=== PATIENT | female | born 1960 | race Caucasian/White ===

== ENCOUNTER 2020-08-28 11:16 | Outpatient (REF) | payer OTHER, SELFPAY ==
[2020-08-28 14:39] LABS: Cholesterol 236 mg/dL; HDL Cholesterol 57 mg/dL; LDL Cholesterol Calculated 156 mg/dl; Triglycerides 115 mg/dL
[2020-08-28 15:01] LABS: Thyroid Stimulating Hormone 2.01 mIU/mL (0.32-4.0)
== END 2020-08-28 11:17 | disposition home or self-care (01) ==
LOC: HO.10HDL 11:16
PROVIDERS: Visit Provider Internal Medicine
DX: E78.00 Pure hypercholesterolemia, unspecified (principal); E03.9 Hypothyroidism, unspecified
CPT/HCPCS: 80061; 84443

== ENCOUNTER → 2020-10-23 08:33 | Outpatient (BNV) | payer OTHER, SELFPAY | PROVIDERS: Visit Provider Internal Medicine Medical Oncology | DX: C50.919 Malignant neoplasm of unspecified site of unspecified female breast (principal); M85.80 Other specified disorders of bone density and structure, unspecified site | CPT/HCPCS: 99212; 99213; 99214 ==

== ENCOUNTER 2020-10-25 14:22 | Outpatient (REF) | payer OTHER, SELFPAY ==
--- NOTE | 2020-10-25 14:26 | MM_ITS ---
EXAMINATION: MM SCREENING DIGITAL BREAST TOMOSYNTHESIS, BILATERAL CLINICAL INFORMATION: Screening. Asymptomatic. Prior left lumpectomy and radiation for invasive lobular cancer 2016. Due for yearly exam. COMPARISON: Mammography: 08/28/2019, 08/23/2018, 08/03/2017 TECHNIQUE: Digital breast tomosynthesis is performed in both the craniocaudal and mediolateral oblique views along with computer-aided detection (CAD). Synthesized 2D images are generated from the tomosynthesis. FINDINGS: The breasts are heterogeneously dense, which may obscure small masses (ACR BI-RADS breast composition Category c). Post therapy changes left breast are again noted with scarring 12:00 position. The breasts show no interval mass or architectural abnormality. There are no abnormal calcifications. The axilla are unremarkable. No significant changes. MM/MM tomosynthesis screening BI IMPRESSION: No significant changes from prior exams. ASSESSMENT: BI-RADS 2: Benign RECOMMENDATION: Routine annual mammography screening. This patient's information was entered into a reminder system with a target due date for their next mammogram.
== END 2020-10-25 14:23 | disposition home or self-care (01) ==
LOC: HO.MAMMO 14:22
PROVIDERS: PCP Internal Medicine; Visit Provider Surgery
DX: Z12.31 Encounter for screening mammogram for malignant neoplasm of breast (principal)
CPT/HCPCS: 77063; 77067

== ENCOUNTER → 2020-11-04 10:40 | Outpatient (BNVA) | payer OTHER, SELFPAY | PROVIDERS: PCP Internal Medicine; Visit Provider Surgery | DX: C50.912 Malignant neoplasm of unspecified site of left female breast (principal); Z17.0 Estrogen receptor positive status [ER+] | CPT/HCPCS: 99212 ==

== ENCOUNTER → 2021-05-05 08:58 | Outpatient (BNVA) | payer OTHER, SELFPAY | PROVIDERS: PCP Internal Medicine; Visit Provider Surgery | DX: C50.912 Malignant neoplasm of unspecified site of left female breast (principal); Z17.0 Estrogen receptor positive status [ER+] | CPT/HCPCS: 99212 ==

== ENCOUNTER 2021-10-26 16:04 | Outpatient (REF) | payer OTHER, SELFPAY ==
--- NOTE | ~2021-10-26 | MM_ITS ---
EXAMINATION: MM SCREENING DIGITAL BREAST TOMOSYNTHESIS, BILATERAL CLINICAL INFORMATION: Screening. Asymptomatic. Invasive lobular cancer left breast status post lumpectomy and radiation, 2016. COMPARISON: Mammography: 10/25/2020, 08/28/2019, 08/23/2018 TECHNIQUE: Digital breast tomosynthesis is performed in both the craniocaudal and mediolateral oblique views along with computer-aided detection (CAD). Synthesized 2D images are generated from the tomosynthesis. FINDINGS: The breasts are heterogeneously dense, which may obscure small masses (ACR BI-RADS breast composition Category c). Parenchymal pattern is similar to prior studies. Again, there are post therapy changes on the left with scarring 12:00 position. There is bilateral fibronodular parenchymal pattern is similar to prior studies. No developing density or interval mass or interval architectural changes. No abnormal calcifications. The axilla are unremarkable. Skin contours are smooth. MM/MM tomosynthesis screening BI IMPRESSION: 1. No mammographic evidence of malignancy. 2. Post therapy changes left breast, stable. ASSESSMENT: BI-RADS 2: Benign RECOMMENDATION: Routine annual mammography screening. This patient's information was entered into a reminder system with a target due date for their next mammogram.
== END 2021-10-26 16:05 | disposition home or self-care (01) ==
LOC: HO.MAMMO 16:04
PROVIDERS: Absent Provider Surgery; PCP Internal Medicine; Visit Provider Internal Medicine
DX: Z12.31 Encounter for screening mammogram for malignant neoplasm of breast (principal)
CPT/HCPCS: 77063; 77067

== ENCOUNTER 2021-11-26 09:24 | Outpatient (REF) | payer OTHER, SELFPAY ==
--- NOTE | ~2021-11-26 | MM_ITS ---
EXAMINATION: BONE DENSITOMETRY CLINICAL INDICATION: Breast cancer. On letrozole. History of osteopenia. COMPARISON: Previous BD dated 11/08/2019 and baseline BD dated 10/29/2016. TECHNIQUE: Using a [employer] DXA System (software version: 13.1) manufactured by [employer], dual-energy x-ray absorptiometry was performed of the lumbar spine and left hip. The images are of good technical quality. Summary results are attached. FINDINGS: AP SPINE L1-L4: Current: BMD 1.054 g/cm2, Z-score 0.0, T-score -1.1, osteopenia, 4.1% decrease from previous, 5.0% decrease from baseline (<5% change is not significant). Prior: BMD 1.099 g/cm2. Baseline: BMD 1.110 g/cm2. LEFT FEMUR, NECK: Current: BMD 0.843 g/cm2, Z-score -0.3, T-score -1.4, osteopenia. Prior: BMD 0.849 g/cm2. Baseline: BMD 0.896 g/cm2. LEFT FEMUR, TOTAL: Current: BMD 0.870 g/cm2, Z-score -0.3, T-score -1.1, osteopenia, 2.5% decrease from previous, 3.3% decrease from baseline (<5% change is not significant). Prior: BMD 0.892 g/cm2. Baseline: BMD 0.900 g/cm2. IDENTIFIED RISK FACTORS: Menopause. HISTORY OF FRACTURE: None listed. MEDICATIONS: Calcium. Vitamin D. MM/XR DEXA axial skeleton IMPRESSION: 1. DIAGNOSIS: Osteopenia based on the lowest T-score value of -1.4 in the femoral neck applying World Health Organization criteria. 2. 10-YEAR FRACTURE RISK PREDICTION, FRAX: Major osteoporotic fracture (clinical spine, forearm, hip or shoulder) 8.0%. Hip fracture 0.7%. 3. Treatment Recommendations: NOF guidelines recommend consideration for treatment in postmenopausal women and men age 50 and older presenting with the following: -A hip or vertebral (clinical or morphometric) fracture. -T-score less than or equal to -2.5 at the femoral neck or spine after appropriate evaluation to exclude secondary causes. -Low bone mass at the hip or spine and a 10-year fracture probability by FRAX of greater than or equal to 3% for hip fracture or greater than or equal to 20% for major osteoporotic fracture based on the [place] adapted WHO algorithm. 4. Other Recommendations: All treatment decisions require clinical judgment and consideration of individual patient factors, including patient preferences, comorbidities, previous drug use, risk factors not captured in the FRAX model (e.g. frailty, falls, vitamin D deficiency, increased bone turnover, interval significant decline in bone density) and possible under or overestimation of fracture risk by FRAX. Additional medical evaluation for secondary cause of low bone mineral density may be appropriate. FUTURE SCAN RECOMMENDATION: People with diagnosed cases of osteoporosis or at high risk for fracture should have regular bone mineral density tests. For patients eligible for Medicare, routine testing is allowed once every 2 years. The testing frequency can be increased to one year for patients who have rapidly progressing disease, those who are receiving or discontinuing medical therapy to restore bone mass, or have additional risk factors.
== END 2021-11-26 09:25 | disposition home or self-care (01) ==
LOC: HO.MAMMO 09:24
PROVIDERS: PCP Internal Medicine; Visit Provider Internal Medicine Medical Oncology
DX: Z13.820 Encounter for screening for osteoporosis (principal); M85.80 Other specified disorders of bone density and structure, unspecified site; Z78.0 Asymptomatic menopausal state; Z79.811 Long term (current) use of aromatase inhibitors; Z79.899 Other long term (current) drug therapy
CPT/HCPCS: 77080

== ENCOUNTER → 2022-01-14 14:36 | Outpatient (BNVA) | payer OTHER, SELFPAY | PROVIDERS: PCP Internal Medicine; Referring Provider Internal Medicine; Visit Provider Surgery | DX: C50.912 Malignant neoplasm of unspecified site of left female breast (principal); Z17.0 Estrogen receptor positive status [ER+] | CPT/HCPCS: 99212 ==

== ENCOUNTER 2022-01-20 06:32 | Day surgery (SDC) | payer OTHER, SELFPAY ==
[2022-01-14 11:28] VITALS: BMI 30.3
--- NOTE | 2022-01-19 09:26 | HO.ANESPROP2 ---
Documented by User: Ryann Calvert NP 01/19/22 09:27 HPI - Anesthesia Eval Consult details Narrative: 61yo F for Colonoscopy PMFSH Active Problems Active Problems: All Active Problems (Updated 01/14/22 @ 15:09 by Scooby Sandhu MD) Breast cancer (Acute) Lobular carcinoma of left breast, stage 1, estrogen receptor positive (Acute) Past Medical History Medical History Anxiety Cataract of both eyes Hypothyroidism Lobular carcinoma of left breast, stage 1, estrogen receptor positive Family History Family History Mother History of colon cancer Surgical History Surgical History History of lumpectomy of left breast Hx of cataract surgery Hx of colonoscopy Hx of wisdom tooth extraction Social History Social History Are you a primary aged or disabled care worker to a significant other at home: No Do you presently have visiting nurse or other home services: No Patient Tobacco Use Status: Never used Tobacco Use of substances other than those prescribed or required for medical reasons: No Are you DNR?: No Advance Directives: No Advance Directives Information Provided: No Advance Directives on File: No Recently lost weight without trying: No Eating poorly because of decreased appetite: No Nutrition Risks: No Nutritional Risk Meds Allergies Allergy/AdvReac Type Severity Reaction Status Date / Time adhesive tape [ADHESIVE TAPE] Allergy Intermediate RASH, Verified 01/14/22 14:49 SWELLING, TOPICAL Penicillins [PENICILLINS] AdvReac Mild sensitivity Verified 01/14/22 14:49 had diarrhea with weight loss following rx in Home Medications Medication Instructions Recorded Confirmed Last Taken Type calcium-magnesium 750 mg-465 mg See Rx Instructions .ROUTE .COMPLEX 10/23/20 01/14/22 Unknown History tablet levothyroxine 112 mcg tablet 1 tab PO DAILY 10/23/20 01/14/22 Unknown History multivitamin 1 tab PO DAILY 10/23/20 01/14/22 Unknown History omega-3 fatty acids See Rx Instructions .ROUTE .COMPLEX 10/23/20 01/14/22 Unknown History Exam Exam Date and Time: January 19, 2022 0926 Height,Weight and Vital Signs: Height 5 ft 2 in Weight 75.296 kg Pertinent Lab Results Pertinent Lab Results: Laboratory Tests 10/26/21 10/26/21 10:05 10:05 WBC 4.6 L Hgb 13.8 Hct 40.2 Plt Count 257 Sodium 141 Potassium 4.1 Chloride 106 Carbon Dioxide 28 BUN 12 Creatinine 0.74 Assessment and Plan Assessment Anesthesia Assessment: Chart Reviewed Documented by User: Michelle Nathan MD 01/20/22 07:21 [facility] Past Medical History Medical History Anxiety Cataract of both eyes Hypothyroidism Lobular carcinoma of left breast, stage 1, estrogen receptor positive Family History Family History Mother History of colon cancer Family history of problems with anesthesia: No Surgical History Surgical History History of lumpectomy of left breast Hx of cataract surgery Hx of colonoscopy Hx of wisdom tooth extraction History of Problems with Anesthesia: No Social History Social History Are you a primary aged or disabled care worker to a significant other at home: No Do you presently have visiting nurse or other home services: No Patient Tobacco Use Status: Never used Tobacco Use of substances other than those prescribed or required for medical reasons: No Are you DNR?: No Advance Directives: No Advance Directives Information Provided: No Advance Directives on File: No Recently lost weight without trying: No Eating poorly because of decreased appetite: No Nutrition Risks: No Nutritional Risk Meds Allergies Allergy/AdvReac Type Severity Reaction Status Date / Time adhesive tape [ADHESIVE TAPE] Allergy Intermediate RASH, Verified 01/14/22 14:49 SWELLING, TOPICAL Penicillins [PENICILLINS] AdvReac Mild sensitivity Verified 01/14/22 14:49 had diarrhea with weight loss following rx in Home Medications Medication Instructions Recorded Confirmed Last Taken Type calcium-magnesium 750 mg-465 mg See Rx Instructions .ROUTE .COMPLEX 10/23/20 01/14/22 Unknown History tablet levothyroxine 112 mcg tablet 1 tab PO DAILY 10/23/20 01/14/22 Unknown History multivitamin 1 tab PO DAILY 10/23/20 01/14/22 Unknown History omega-3 fatty acids See Rx Instructions .ROUTE .COMPLEX 10/23/20 01/14/22 Unknown History Exam Airway Mallampati Class: II TM Dist: >3cm Neck ROM: Full Assessment and Plan Assessment Anesthesia Assessment: Anesthesia Plan Discussed Final Anesthetic Review Family History of Problems with Anesthesia: No History of Problems with Anesthesia: No NPO: Yes ASA Class: II Final Preanesthetic Review: No Changes in Pt Med Stat, Meds/Allgs Chart Reviewed, Consent Obtained/Reviewed and Anes Risks/Benef Reviewed Patient Risk: Low Procedure Risk: Low Anesthetic Plan Anesthetic Plan: GA Disposition: Standard PACU
[2022-01-20 06:54] VITALS: BP 130/82; PULSE 95; RESP 14; TEMP 36.5; O2SAT 97
[2022-01-20] MEDS: Lactated Ringers 1,000 ML 100 ML IVCONT (07:12)
[2022-01-20 08:20] VITALS: BP 85/45; PULSE 75; RESP 16; TEMP 36.3; O2SAT 98
--- NOTE | 2022-01-20 08:22 | P.BOP_ITS ---
Brief Operative Note Date of Service: 01/20/22 Pre-op diagnosis: Screening Post-op diagnosis: other (Diverticulosis) Procedure: Colnoscopy to the cecum and TI Surgeon: Colin Phan Anesthesia: MAC Was an [employer] Sales Beauty Advisor used for this Procedure?: No Estimated blood loss (mL): 0 Pathology: none sent Condition: stable Disposition: PACU
[2022-01-20 08:25] VITALS: BP 99/53; PULSE 77; RESP 16; O2SAT 96
[2022-01-20 08:30] VITALS: BP 103/61; PULSE 83; RESP 16; O2SAT 98
[2022-01-20 08:35] VITALS: BP 116/58; PULSE 70; RESP 16; TEMP 36.6; O2SAT 98
--- NOTE | 2022-01-20 09:03 | OP_ITS ---
SURGEON: Colin Phan MD INDICATIONS: The patient presents for evaluation of personal history of tubular adenoma of the colon, family history of colon cancer, colorectal cancer screening. Full consent has been obtained from her for this, including risks of bleeding and perforation. PREOPERATIVE DIAGNOSIS: POSTOPERATIVE DIAGNOSIS: PROCEDURE PERFORMED: Colonoscopy to cecum and terminal ileum. ESTIMATED BLOOD LOSS: COMPLICATIONS: ANESTHESIA: Medication used, monitored anesthesia care. ASSISTANTS: SPECIMENS: PREOPERATIVE DIAGNOSES: Colorectal cancer screening, personal history of tubular adenoma of the colon, family history of colon cancer. POSTOPERATIVE DIAGNOSES: Colorectal cancer screening, personal history of tubular adenoma of the colon, family history of colon cancer, sigmoid diverticulosis, and internal hemorrhoids. DESCRIPTION OF PROCEDURE: The patient was placed in the left lateral decubitus position the digital rectal exam revealed no abnormalities. The Olympus video pediatric colonoscope was entered into the rectum and advanced easily to the cecum. Once in the cecum, I did identify a normal-appearing cecal pouch with appendiceal orifice and a normal-appearing ileocecal valve. The terminal ileum was cannulated and appeared normal. The scope was withdrawn back in the colon. The entire cecum and ileocecal valve appeared normal. The scope was slowly withdrawn assessing all mucosal surfaces carefully. Preparation was excellent. I did not visualize any sign of polyps, colitis, nor angiodysplasia. There was a mild amount of sigmoid diverticulosis. In the rectum, the scope was retroflexed visualizing internal hemorrhoids, but no other pathology. The rectal mucosa appeared normal. The scope was straightened and withdrawn from the patient. She tolerated the procedure well and was returned to the recovery area in stable condition. IMPRESSION: 1. Sigmoid diverticulosis. 2. Internal hemorrhoids. PLAN: Given her previous history and family history, I would recommend a followup colonoscopy in 5 years for further screening. She will otherwise see me on a p.r.n. basis. MD LOIS Mclean/ANNA / [phone]
== END 2022-01-20 09:05 | disposition home or self-care (01) ==
PROVIDERS: PCP Internal Medicine; Visit Provider Internal Medicine
PROC: 0DJD8ZZ Inspection of Lower Intestinal Tract, Via Natural or Artificial Opening Endoscopic (ICD-10-PCS; CPT 45378; principal; 2022-01-20 07:30)
DX: Z12.11 Encounter for screening for malignant neoplasm of colon (principal); Z86.010 Personal history of colon polyps; Z80.0 Family history of malignant neoplasm of digestive organs; K57.30 Diverticulosis of large intestine without perforation or abscess without bleeding; K64.8 Other hemorrhoids; E03.9 Hypothyroidism, unspecified; E78.00 Pure hypercholesterolemia, unspecified; C50.912 Malignant neoplasm of unspecified site of left female breast; Z17.0 Estrogen receptor positive status [ER+]; Z79.811 Long term (current) use of aromatase inhibitors; Z92.3 Personal history of irradiation; Z79.899 Other long term (current) drug therapy; Z98.890 Other specified postprocedural states
CPT/HCPCS: 45378

== ENCOUNTER → 2022-02-23 13:14 | Outpatient (BNVA) | payer OTHER, SELFPAY | PROVIDERS: PCP Internal Medicine; Visit Provider Orthopaedic Surgery | DX: R25.2 Cramp and spasm (principal) | CPT/HCPCS: 99202 ==

== ENCOUNTER 2022-10-28 15:54 | Outpatient (REF) | payer OTHER, SELFPAY ==
--- NOTE | ~2022-10-28 | MM_ITS ---
EXAMINATION: MM SCREENING DIGITAL BREAST TOMOSYNTHESIS, BILATERAL CLINICAL INFORMATION: Screening. Asymptomatic. Left breast ILC status post lumpectomy and radiation, 2016 COMPARISON: Mammography: 10/26/2021, 10/25/2020, 08/28/2019, 08/23/2018 TECHNIQUE: Digital breast tomosynthesis is performed in both the craniocaudal and mediolateral oblique views along with computer-aided detection (CAD). Synthesized 2D images are generated from the tomosynthesis. FINDINGS: The breasts are heterogeneously dense, which may obscure small masses (ACR BI-RADS breast composition Category c). Parenchymal pattern is similar to prior studies and there is no interval mass or architectural abnormality or developing density. Left breast post therapy changes are again seen with mild reduced breast size and stable scarring. There are no abnormal calcifications. The axilla and skin contours are unremarkable. No significant changes from prior studies. MM/MM tomosynthesis screening BI IMPRESSION: -No mammographic evidence of malignancy. -Post therapy changes left breast. ASSESSMENT: BI-RADS 2: Benign RECOMMENDATION: Routine annual mammography screening. This patient's information was entered into a reminder system with a target due date for their next mammogram.
== END 2022-10-28 15:55 | disposition home or self-care (01) ==
LOC: HO.MAMMO 15:54
PROVIDERS: PCP Internal Medicine; Visit Provider Internal Medicine
DX: Z12.31 Encounter for screening mammogram for malignant neoplasm of breast (principal)
CPT/HCPCS: 77063; 77067

== ENCOUNTER 2023-04-07 07:21 | Outpatient (REF) | payer OTHER, SELFPAY ==
[2023-04-07 07:39] LABS: MANUAL DIFF FLAG NO
[2023-04-07 08:03] LABS: Eosinophils Absolute Auto 0.1 X10*3/uL (0.0-0.4); Eosinophils Percent Auto 3.2 % (0-4); Hemoglobin 14.4 g/dl (12.0-16.0); Imm Gran Abs Auto 0.01 X10*3/uL (0.00-0.03); Imm Gran Pct Auto 0.2 % (0.0-0.4); Lymphocytes Absolute Auto 1.6 X10*3/uL (1.2-4.9); Lymphocytes Percent Auto 39.2 % (20-40); Mean Corpuscular HGB Conc 33.5 g/dl (31.0-35.0); Mean Corpuscular Hemoglobin 29.4 pg (27.0-33.0); Mean Corpuscular Volume 87.8 fL (80.0-98.0); Mean Platelet Volume 9.2 fL (9.4-12.3); Monocytes Absolute Auto 0.4 X10*3/uL (0.1-1.2); Monocytes Percent Auto 8.8 % (2-11); Neutrophils Percent Auto 47.6 % (45-73); Platelet Count 253 X10*3/uL (160-400); White Blood Count 4.1 X10*3/uL (4.8-10.8)
[2023-04-07 08:50] LABS: Alanine Aminotransferase 22 U/L (0-31); Albumin Level 4.1 g/dL (3.5-5.0); Alkaline Phosphatase 100 U/L (39-117); Anion Gap 10 (12-20); Aspartate Amino Transferase 22 U/L (5-31); Bilirubin Total 0.6 mg/dL (0.0-1.0); Blood Urea Nitrogen 13 mg/dL (9-16); Calcium 9.3 mg/dL (8.4-10.2); Carbon Dioxide 30 mmol/L (22-29); Chloride 105 mmol/L (96-108); Cholesterol 231 mg/dL; Estimated Glomerular Filt Rate > 60; Glucose Fasting 92 mg/dL (60-99); HDL Cholesterol 61 mg/dL; LDL Cholesterol Calculated 154 mg/dl; Potassium 4.1 mmol/L (3.3-5.1); Sodium 141 mmol/L (135-145); Total Protein 7.5 g/dL (6.5-8.0); Triglycerides 84 mg/dL
[2023-04-07 08:57] LABS: Thyroid Stimulating Hormone 0.69 uIU/mL (0.32-4.0); Vitamin D 25-OH Total 44.8 ng/mL (>30)
== END 2023-04-07 07:22 | disposition home or self-care (01) ==
LOC: HO.LAB 07:21
PROVIDERS: PCP Internal Medicine; Visit Provider Internal Medicine
DX: Z00.00 Encounter for general adult medical examination without abnormal findings (principal); E03.9 Hypothyroidism, unspecified; E78.00 Pure hypercholesterolemia, unspecified; M54.50 Low back pain, unspecified; C50.112 Malignant neoplasm of central portion of left female breast
CPT/HCPCS: 36415; 80053; 80061; 82306; 84443; 85025

== ENCOUNTER → 2023-04-29 11:17 | Outpatient (BNVA) | payer OTHER, SELFPAY | PROVIDERS: PCP Internal Medicine; Visit Provider Internal Medicine Cardiovascular Disease | DX: R00.2 Palpitations (principal); E78.5 Hyperlipidemia, unspecified | CPT/HCPCS: 99202 ==

== ENCOUNTER 2023-06-07 09:57 | Outpatient (AMB) | payer OTHER, SELFPAY ==
[2023-06-07 10:01] VITALS: BMI 28.9
--- NOTE | 2023-06-07 10:01 | MHC.OFFVIS ---
Intake Vital Signs 06/07/23 10:01 Height 5 ft 3 in Weight 163 lb BMI 28.9 Intake Visit Reasons: NewProb-Left Thumb Pain Intake Note: Jordana 63 yr old female presents today for new problem visit for her left thumb pain from DOI 05/27/23. States pain started after she mown her lawn. States she banged her thumb on the handle and felt immediate pain. States she is currently limited ROM and has some swelling. Reports pain increases with thumb movement. States she had it wrapped all week with an gabriel Wrap. Denies numbness or tingling. Allergies adhesive tape [ADHESIVE TAPE] Allergy (Intermediate, Verified 06/07/23 10:04) RASH, SWELLING, TOPICAL Penicillins [PENICILLINS] Adverse Reaction (Mild, Verified 06/07/23 10:04) sensitivity had diarrhea with weight loss following rx in HPI NewProb-Left Thumb Pain HPI Details 63-year-old female who presents to the office today for evaluation of left thumb pain s/p banging her thumb on the handle while mowing her lawn, 05/27/23. She states she has pain, swelling and limited ROM in her thumb which is aggravated with movement. She denies any numbness or tingling and has not had any treatment in the past. She had wrapped her thumb with an GABRIEL bandage for a week. COUNTS INCLUDE 234 BEDS AT THE [facility] Medical History Anxiety Cataract of both eyes Hypothyroidism Lobular carcinoma of left breast, stage 1, estrogen receptor positive Surgical History History of lumpectomy of left breast Hx of cataract surgery Hx of colonoscopy Hx of wisdom tooth extraction Family History Mother History of colon cancer Social History (Updated 06/07/23 @ 10:09 by NEYMAR Chung) Household Members: None Housing: House Are you a primary date night caregiver to a significant other at home: No Do you presently have visiting nurse or other home services: No Patient Tobacco Use Status: Never used Tobacco service: No Current occupational status: employed 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 No Pain with CMC grind, they are able to make a full fist and fully extend. Negative finklesteins. NVI. Results Reviewed Results Reviewed: Xrays were obtained in the office today and personally reviewed by me of the left hand show cmc oa Assessment & Plan Assessment & Plan (1) Arthritis of carpometacarpal (CMC) joint of left thumb: Code(s): M18.12 - Unilateral primary osteoarthritis of first carpometacarpal joint, left hand Plan We discussed options which include formal occupational therapy vs home exercises. I did review with her some exercises to do at home. She was also given an off the shelf comfort cool brace to help with immobilization which she will wear with night time and with any type of strenuous activities. I did encourage her to work on her exercises throughout the day when not wearing the brace. I would expect improvement of symptoms in the next 2-3 weeks. If symptoms persist or worsens, patient will contact the office, otherwise follow-up as needed. Orders: Orders XR hand LT min 3V Today M79.642 - Pain in left hand Patient Instructions: Scribed for Adamaris Peguero PA-C, by Reed Rush certified medical technician, on 06/07/2023 at 10:00 AM OPAL. Adamaris Hyman PA-C, have personally reviewed and agree with the information entered by the scribe. Coding Level of Care Code New Pt Level 3 (01603) Diagnoses Arthritis of carpometacarpal (CMC) joint of left thumb M18.12
== END 2023-06-07 10:33 | disposition home or self-care (01) ==
PROVIDERS: PCP Internal Medicine; Visit Provider Physician Assistant
DX: M18.12 Unilateral primary osteoarthritis of first carpometacarpal joint, left hand (principal)
CPT/HCPCS: 99213

== ENCOUNTER → 2023-06-07 09:57 | Outpatient (BNVA) | payer OTHER, SELFPAY | PROVIDERS: PCP Internal Medicine; Visit Provider Physician Assistant | DX: M18.12 Unilateral primary osteoarthritis of first carpometacarpal joint, left hand (principal) | CPT/HCPCS: 73130; 99212 ==

== ENCOUNTER 2023-06-07 15:57 | Outpatient (REF) | payer OTHER, SELFPAY ==
--- NOTE | ~2023-06-07 | XR_ITS ---
EXAMINATION: XR HAND, LEFT CLINICAL INFORMATION: Pain COMPARISON: None available. TECHNIQUE: PA, lateral, and oblique views of the left hand. FINDINGS: There is arthritis at the first CUSTODIAL joint and IP joint with joint space narrowing and osteophyte formation. There is a periarticular ossification adjacent to the trapezoid and base of the second metacarpal bone and more faint soft tissue calcification or ossification adjacent to the IP joint of the thumb and it is difficult to exclude old trauma. No acute fracture or dislocation. Mild osteoarthritis with small osteophytes at the MCP joint of the thumb and DIP joints of the second through fifth fingers. XR/XR hand LT min 3V IMPRESSION: Osteoarthritis greatest at the IP joint and CUSTODIAL joint of the thumb. Periarticular soft tissue ossification and calcifications as described and it is difficult to exclude old trauma. No acute fracture.
== END 2023-06-07 15:58 | disposition home or self-care (01) ==
LOC: HO.HOSX 15:57
PROVIDERS: Visit Provider Physician Assistant
DX: M18.12 Unilateral primary osteoarthritis of first carpometacarpal joint, left hand (principal)
CPT/HCPCS: 73130

== ENCOUNTER → 2023-06-20 08:53 | Outpatient (REF) | payer OTHER, SELFPAY ==
--- NOTE | 2023-06-20 08:56 | CA_ITS ---
Acquisition Time: 2023-06-20 09:02:12 Total Exercise Time: 00:06:22 Test Indications: Palpitations Medications: LEVOTHYROXINE Protocol: FRANKLYN Max HR: 151 BPM 96% of Pred: 156 BPM Max BP: 177/068 mmHG Max Work Load: 7.4 METS Exercise stress test exercise 6 min 22 sec of Franklyn protocol achieivng 96% MPHR, without anginal symptoms, without arrhytmias, with normotensive response to exercise, without EKG changes. Test reviewed with Dr. Mcnulty. Referred By: Adama Horton Overread By: Patricia Lowery
--- NOTE | 2023-06-20 08:56 | HM_ITS ---
* Total monitoring time 7 days. * Underlying rhythm is sinus. Average ventricular rate 81/Min. Range 58 to 136/Min. * Very rare supraventricular and ventricular ectopy with minimal burden. * No significant pauses or AV blocks. * Several patient markers as well as symptoms of fluttering in diary. These mostly correlate with sinus rhythm. MTDD
== END ==
LOC: HO.CARD 08:53
PROVIDERS: PCP Internal Medicine; Visit Provider Internal Medicine Cardiovascular Disease
DX: R00.2 Palpitations (principal); E78.5 Hyperlipidemia, unspecified; Z82.49 Family history of ischemic heart disease and other diseases of the circulatory system
CPT/HCPCS: 93017; 93242

== ENCOUNTER → 2023-06-20 08:56 | Outpatient (BNV) | payer OTHER, SELFPAY | PROVIDERS: PCP Internal Medicine; Visit Provider Nurse Practitioner | DX: I47.1 Supraventricular tachycardia (principal) | CPT/HCPCS: 93016; 93018; 93244 ==

== ENCOUNTER 2023-07-12 09:08 | Outpatient (AMB) | payer OTHER, SELFPAY ==
[2023-07-12 09:23] VITALS: BP 120/72; PULSE 84; BMI 29.0
--- NOTE | 2023-07-12 09:23 | A.OFFVIS_ITS ---
Intake Vital Signs 07/12/23 09:23 Height 5 ft 3 in Weight 163 lb 9.328 oz BMI 29.0 BP 120/72 Blood Pressure Location Lt brachial Position Sitting Pulse 84 Pulse Source Pulse Oximeter Intake Visit Reasons: 4 week follow up per NS Intake Note: 4 wk f/u Rehab Nurse Required: No Allergies adhesive tape [ADHESIVE TAPE] Allergy (Intermediate, Verified 07/12/23 09:28) RASH, SWELLING, TOPICAL Penicillins [PENICILLINS] Adverse Reaction (Mild, Verified 07/12/23 09:28) sensitivity had diarrhea with weight loss following rx in Medication List - Last Reconciled 07/12/23 by Candida Pavon NP-Stu calcium-magnesium 750-465 mg unsure of type. Takes one daily levothyroxine 112 mcg PO DAILY multivitamin 1 tab PO DAILY omega-3 fatty acids takes one daily/unsure brand HPI 4 week follow up per NS HPI Details Jordana is a 63-year-old female past medical history of hyperlipidemia who recently reported heart palpitations and underwent an exercise nuclear stress test and Holter monitor. Echocardiogram was ordered however not completed as of yet. Today she reports that she continues to feel heart palpitations but less than previously reported. She says it feels like a brief flutter in her chest that can last seconds. Had no sustained rapid or irregular rates. No presyncope, syncope, falls. No chest discomfort at rest or with activity. No shortness of breath, PND, orthopnea or edema. She reports good activity tolerance. She mostly notices her her palpitations when she is at rest. [facility], [facility] Medical History Anxiety Lobular carcinoma of left breast, stage 1, estrogen receptor positive Cataract of both eyes Hypothyroidism Surgical History Hx of wisdom tooth extraction Hx of colonoscopy History of lumpectomy of left breast Hx of cataract surgery Family History Mother History of colon cancer Social History Household Members: None Housing: House Are you a primary home health aide caregiver to a significant other at home: No Do you presently have visiting nurse or other home services: No Patient Tobacco Use Status: Never used Tobacco service: No Current occupational status: employed 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 Review of Systems Const All systems reviewed & are unremarkable except as noted in HPI and below ENT Denies dizziness Card Details: heart palpitations Denies chest pain, Denies chest pain at rest, Denies chest pain with activity, Denies rapid heart rate, Denies pedal edema, Denies edema, Denies leg edema, Denies lightheadedness, Denies palpitations, Denies dyspnea, Denies dyspnea on exertion and Denies orthopnea Resp Denies cough, Denies dyspnea and Denies dyspnea on exertion GI Denies hematochezia and Denies change in stool character Musc Denies abnormal gait, Denies limited range of motion, Denies muscle cramps, Denies muscle weakness, Denies numbness, Denies radiating pain into limb, Denies stiffness and Denies tingling Neuro Denies abnormal gait, Denies dizziness, Denies numbness and Denies tingling Endo Denies palpitations Physical Exam Vital Signs: Last Vital Signs Pulse 84 07/12/23 09:23 BP 120/72 07/12/23 09:23 BMI result Body Mass Index 29.0 Const General: cooperative, healthy appearing, comfortable and no acute distress Orientation/consciousness: patient oriented x3 Neck Neck: Yes normal visual inspection Resp Effort & Inspection: normal respiratory effort Auscultation: clear to auscultation bilaterally, no crackles, no rales, no rhonchi and no wheezes Cardio Jugular venous distension: no JVD Rate: regular rate Rhythm: regular rhythm Heart sounds: S1 normal heart sound present, S2 normal heart sound present, no gallops, no murmurs and no rubs Neuro General: patient oriented x3 Extrem General: Yes normal to inspection, No no pedal edema and No calf tenderness Psych Appearance: grossly normal Mental Status: mental status grossly normal Speech and movement: Normal speech and movement present Assessment & Plan Assessment & Plan (1) Palpitations: Code(s): R00.2 - Palpitations Plan: Reports of heart palpitations that feel like a brief flutter in her chest. No sustained rapid or irregular rates. Her description sounds like it could be extrasystoles however evaluation for possible AF needed to be done. She wore Holter monitor in a 06/12/2023 for 7 days showing sinus rhythm with average heart rate 81, rare ectopy, her symptoms correlated with sinus rhythm. An echocardiogram was ordered however not completed as of yet. A nstress test was done on 06/20/2003 where she exercise 6 minutes and 22 seconds without anginal symptoms and no EKG changes of ischemia. Review test results with her. Her symptom of palpitation is likely related to rare PACs/PVCs. Offered reassurance. Echocardiogram to be done. If EF is normal then her palpitations are benign. EF is reduced then patient will need further evaluation and treatment. Discussed the reduction in caffeinated beverages, stress reduction activities, activity as tolerated. Cardiology follow-up at its needed. If echo is abnormal then further follow-up will be arranged. Orders: Orders CA echo transthoracic complete Today R00.2 - Palpitations Coding Level of Care Code Est Pt Level 3 (13106) Diagnoses Palpitations R00.2 Time Spent (min) 24
== END 2023-07-12 09:54 | disposition home or self-care (01) ==
PROVIDERS: PCP Internal Medicine; Visit Provider Nurse Practitioner Family
DX: R00.2 Palpitations (principal)
CPT/HCPCS: 99213

== ENCOUNTER → 2023-07-12 09:08 | Outpatient (BNVA) | payer OTHER, SELFPAY | PROVIDERS: PCP Internal Medicine; Visit Provider Nurse Practitioner Family | DX: R00.2 Palpitations (principal) | CPT/HCPCS: 99212 ==

== ENCOUNTER → 2023-08-11 09:52 | Outpatient (REF) | payer OTHER, SELFPAY ==
--- NOTE | 2023-08-11 09:54 | CA_ITS ---
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 The calculated ejection fraction is 67% by biplane method. - No obvious valvular pathology seen on this study. Findings Left Ventricle Normal left ventricular cavity size. There is normal left ventricular wall thickness. The left ventricular systolic function is normal. The calculated ejection fraction is 67% by biplane method. There is no evidence of regional wall motion abnormalities. Diastolic function is normal for age. Right Ventricle Normal right ventricular cavity size and systolic function. Atria Both atria are normal in size. Aortic Valve There is a normal trileaflet aortic valve. There is no aortic valve stenosis. There is no aortic valve regurgitation. Mitral Valve The mitral valve appears normal. There is no mitral valve regurgitation. There is no mitral valve stenosis. Pulmonic Valve The pulmonic valve is likely normal. Tricuspid Valve Normal tricuspid valve structure. There is trace tricuspid valve regurgitation. Tricuspid regurgitation envelope is inadequate for calculation of right ventricular systolic pressure. Great Vessels The asc aorta is normal in size. Venous The inferior vena cava is normal in size and collapses greater than 50% with inspiration. Pericardium/Pleural There is no evidence of pericardial effusion. Prior Study Comparison No significant change compared to prior study dated: 05/07/2019. Recommendations, Care & Conclusions No obvious valvular pathology seen on this study. Measurements 2D Linear Measurements IVSd: 1.00 0.6-0.9/0.6-1.0 cm LVIDd: 4.40 3.9-5.3/4.2-5.9 cm LVIDd Index: 2.50 2.4-3.2/2.2-3.1 cm/m2 LVIDs: 2.60 2.0-3.6 cm LVPWd: 0.90 0.7-1.1 cm LA Diam: 3.10 2.7-3.8/3.0-4.0 cm LAIDs Index: 1.76 1.5-2.3 cm/m2 LV Mass: 171.46 67-162/88-224 g LV Mass Index: 97.42 43-95/49-115 g/m2 LVOT Diam: 1.90 3.0+(-)1.3 cm 2D Systolic Function EF 4C: 62.00 >55% EF 2C: 75.30 >55% EF BiP: 66.60 >55% Mitral Valve MV Pk E: 0.60 MV PK A: 0.64 MV Decel Time: 215.00 E/A: 0.90 E'Lateral: 7.40 E'Medial: 5.98 E/E' Med: 10.10 E/E' Lat: 8.20 PHT: 63.00 MVA PHT: 3.49 Decel [place]: 2.81 Aortic Valve AoV Pk Erick: 1.38 AoV Mn Erick: 1.03 AoV VTI: 0.31 AoV Pk Grad: 8.00 Aov Mn Grad: 5.00 KATIE Cont.VTI: 2.10 LVOT LVOT Pk Erick: 1.11 LVOT Mn Erick: 0.79 LVOT VTI: 0.23 LVOT Pk Grad: 5.00 LVOT Mn Grad: 3.00 LVOT Diam: 1.90 LVOT Area: 2.84 Diastolic Function MV Pk E: 0.60 MV Pk A: 0.64 E/A: 0.90 E'Medial: 5.98 E/E' Med: 10.10 E' Laterial: 7.40 E/E' Lat: 8.20 Right Ventricle TAPSE (mm): 23.00 TVS' Erick: 9.46 Tricuspid Valve RA Press: 3.00 Great Vessels Aorta Sinus of Valsalva: 3.10 2.0-3.5 cm Ao Asc: 3.30 2.1-3.4 cm Ao Arch: 2.90 Pulmonary Veins Pulm Vein S/D 1.40 Pulmonary Valve PV Pk Erick: 1.11 Peak PV Grad: 5.00 Updated in Other Vendor System with Status of Final Ariel Hughes MD electronically signed on 08/13/2023 11:57:30 AM with status of Final
== END ==
LOC: HO.CARD 09:52
PROVIDERS: Visit Provider Nurse Practitioner Family
DX: R00.2 Palpitations (principal)
CPT/HCPCS: 93306

== ENCOUNTER → 2023-08-11 09:54 | Outpatient (BNV) | payer OTHER, SELFPAY | PROVIDERS: Visit Provider Internal Medicine | DX: R00.2 Palpitations (principal) | CPT/HCPCS: 93306 ==

== ENCOUNTER → 2023-10-31 15:45 | Outpatient (BNV) | payer OTHER, SELFPAY | PROVIDERS: PCP Internal Medicine; Referring Provider Internal Medicine Medical Oncology; Visit Provider Radiology Diagnostic Radiology | DX: Z12.31 Encounter for screening mammogram for malignant neoplasm of breast (principal) | CPT/HCPCS: 77063; 77067 ==

== ENCOUNTER 2023-10-31 15:51 | Outpatient (REF) | payer OTHER, SELFPAY ==
--- NOTE | ~2023-10-31 | MM_ITS ---
EXAMINATION: MM SCREENING DIGITAL BREAST TOMOSYNTHESIS, BILATERAL CLINICAL INFORMATION: Screening. Asymptomatic. Status post lumpectomy for invasive lobular cancer in 2016. COMPARISON: Mammography: This study is compared with prior exams dating back to 10 31. TECHNIQUE: Digital breast tomosynthesis is performed in both the craniocaudal and mediolateral oblique views along with computer-aided detection (CAD). Synthesized 2D images are generated from the tomosynthesis. FINDINGS: The breasts are heterogeneously dense, which may obscure small masses (ACR BI-RADS breast composition Category c). There are no significant masses, abnormal calcifications, or other abnormalities. There are postsurgical changes in the upper outer quadrant of the left breast. MM/MM tomosynthesis screening BI IMPRESSION: No mammographic evidence of malignancy. ASSESSMENT: BI-RADS BI-RADS 2 - Benign Findings RECOMMENDATION: Routine annual mammography screening. 1 year F/U This examination should not preclude the clinical evaluation of a suspicious palpable abnormality. This patient's information was entered into a reminder system with a target due date for their next mammogram.
== END 2023-10-31 15:52 | disposition home or self-care (01) ==
LOC: HO.MAMMO 15:51
PROVIDERS: PCP Internal Medicine; Referring Provider Internal Medicine Medical Oncology; Visit Provider Internal Medicine
DX: Z12.31 Encounter for screening mammogram for malignant neoplasm of breast (principal)
CPT/HCPCS: 77063; 77067

== ENCOUNTER 2023-11-29 10:21 | Outpatient (REF) | payer OTHER, SELFPAY ==
--- NOTE | ~2023-11-29 | MM_ITS ---
EXAMINATION: BONE DENSITOMETRY CLINICAL INDICATION: Osteopenia. COMPARISON: Previous BD dated 11/26/2021 and baseline BD dated 10/29/2016. TECHNIQUE: Using a [employer] DXA System (software version: 13.1) manufactured by [employer], dual-energy x-ray absorptiometry was performed of the lumbar spine and left hip. The images are of good technical quality. Summary results are attached. FINDINGS: LEFT FEMUR, NECK: Current: BMD 0.664 g/cm2, Z-score -1.5, T-score -2.7, osteoporosis. Prior: BMD 0.843 g/cm2. Baseline: BMD 0.896 g/cm2. LEFT FEMUR, TOTAL: Current: BMD 0.695 g/cm2, Z-score -1.6, T-score -2.5, osteoporosis, 20.1% decrease from previous, 22.8% decrease from baseline (<5% change is not significant). Prior: BMD 0.870 g/cm2. Baseline: BMD 0.900 g/cm2. AP SPINE L1-L4: Current: BMD 1.102 g/cm2, Z-score 0.5, T-score -0.6, normal, 4.6% increase from previous, 0.7% decrease from baseline (<5% change is not significant). Prior: BMD 1.054 g/cm2. Baseline: BMD 1.110 g/cm2. IDENTIFIED RISK FACTORS: Menopause. HISTORY OF FRACTURE: None listed. MEDICATIONS: Calcium. MM/XR DEXA axial skeleton IMPRESSION: 1. DIAGNOSIS: Osteoporosis based on the lowest T-score value of -2.7 in the femoral neck applying World Health Organization criteria. 2. 10-YEAR FRACTURE RISK PREDICTION, FRAX: According to the guidelines, FRAX calculation should only be performed on patients in the osteopenia bone density category. Therefore, FRAX was not performed on this patient. 3. Treatment Recommendations: NOF guidelines recommend consideration for treatment in postmenopausal women and men age 50 and older presenting with the following: -A hip or vertebral (clinical or morphometric) fracture. -T-score less than or equal to -2.5 at the femoral neck or spine after appropriate evaluation to exclude secondary causes. -Low bone mass at the hip or spine and a 10-year fracture probability by FRAX of greater than or equal to 3% for hip fracture or greater than or equal to 20% for major osteoporotic fracture based on the [place] adapted WHO algorithm. 4. Other Recommendations: All treatment decisions require clinical judgment and consideration of individual patient factors, including patient preferences, comorbidities, previous drug use, risk factors not captured in the FRAX model (e.g. frailty, falls, vitamin D deficiency, increased bone turnover, interval significant decline in bone density) and possible under or overestimation of fracture risk by FRAX. Additional medical evaluation for secondary cause of low bone mineral density may be appropriate. FUTURE SCAN RECOMMENDATION: People with diagnosed cases of osteoporosis or at high risk for fracture should have regular bone mineral density tests. For patients eligible for Medicare, routine testing is allowed once every 2 years. The testing frequency can be increased to one year for patients who have rapidly progressing disease, those who are receiving or discontinuing medical therapy to restore bone mass, or have additional risk factors.
== END 2023-11-29 10:22 | disposition home or self-care (01) ==
LOC: HO.MAMMO 10:21
PROVIDERS: PCP Internal Medicine; Visit Provider Internal Medicine Medical Oncology
DX: M85.80 Other specified disorders of bone density and structure, unspecified site (principal); Z78.0 Asymptomatic menopausal state
CPT/HCPCS: 77080

== ENCOUNTER 2024-08-29 07:01 | Outpatient (REF) | payer MEDICARE, SELFPAY ==
[2024-08-29 07:12] LABS: MANUAL DIFF FLAG NO
[2024-08-29 07:50] LABS: Basophils Percent Auto 0.7 % (0-2); Eosinophils Absolute Auto 0.2 X10*3/uL (0.0-0.4); Eosinophils Percent Auto 3.4 % (0-4); Hematocrit 40.5 % (37.0-47.0); Hemoglobin 13.6 g/dl (12.0-16.0); Imm Gran Abs Auto 0.01 X10*3/uL (0.00-0.03); Imm Gran Pct Auto 0.2 % (0.0-0.4); Lymphocytes Absolute Auto 1.5 X10*3/uL (1.2-4.9); Lymphocytes Percent Auto 33.7 % (20-40); Mean Corpuscular HGB Conc 33.6 g/dl (31.0-35.0); Mean Corpuscular Hemoglobin 29.8 pg (27.0-33.0); Mean Corpuscular Volume 88.6 fL (80.0-98.0); Mean Platelet Volume 9.7 fL (9.4-12.3); Monocytes Absolute Auto 0.5 X10*3/uL (0.1-1.2); Monocytes Percent Auto 10.8 % (2-11); Neutrophils Absolute Auto 2.2 x10*3/uL (2.0-8.3); Neutrophils Percent Auto 51.2 % (45-73); Platelet Count 265 X10*3/uL (160-400); Red Blood Count 4.57 X10*6/uL (4.20-5.50); Red Cell Distribution Width 12.3 % (11.0-16.0); White Blood Count 4.4 X10*3/uL (4.8-10.8)
[2024-08-29 08:20] LABS: Alanine Aminotransferase 28 U/L (0-31); Alkaline Phosphatase 94 U/L (39-117); Anion Gap 12 (12-20); Aspartate Amino Transferase 25 U/L (5-31); Bilirubin Total 0.5 mg/dL (0.0-1.0); Blood Urea Nitrogen 13 mg/dL (9-16); Calcium 9.3 mg/dL (8.4-10.2); Carbon Dioxide 25 mmol/L (22-29); Chloride 108 mmol/L (96-108); Cholesterol 219 mg/dL (<200); Estimated Glomerular Filt Rate > 60; Glucose Fasting 95 mg/dL (60-99); HDL Cholesterol 56 mg/dL (>40); LDL Cholesterol Calculated 145 mg/dL (<100); Potassium 4.1 mmol/L (3.3-5.1); Sodium 141 mmol/L (135-145); Total Protein 7.3 g/dL (6.5-8.0); Triglycerides 93 mg/dL (<150)
[2024-08-29 08:39] LABS: Thyroid Stimulating Hormone 0.57 uIU/mL (0.32-4.0); Vitamin D 25-OH Total 49.2 ng/mL (>30)
== END 2024-08-29 07:02 | disposition home or self-care (01) ==
LOC: HO.LAB 07:01
PROVIDERS: PCP Internal Medicine; Visit Provider Internal Medicine
DX: E03.9 Hypothyroidism, unspecified (principal); E78.00 Pure hypercholesterolemia, unspecified; C50.112 Malignant neoplasm of central portion of left female breast
CPT/HCPCS: 36415; 80053; 80061; 82306; 84443; 85025

== ENCOUNTER 2024-11-30 09:16 | Outpatient (REF) | payer MEDICARE, SELFPAY | END 2024-11-30 09:17 | disposition home or self-care (01) | LOC: HO.MAMMO 09:16 | PROVIDERS: PCP Internal Medicine; Visit Provider Internal Medicine | DX: Z12.31 Encounter for screening mammogram for malignant neoplasm of breast (principal) ==

== ENCOUNTER → 2024-11-30 09:30 | Outpatient (BNV) | payer MEDICARE, SELFPAY | PROVIDERS: PCP Internal Medicine; Visit Provider Internal Medicine | DX: Z12.31 Encounter for screening mammogram for malignant neoplasm of breast (principal) | CPT/HCPCS: 77063; 77067 ==

== ENCOUNTER 2025-04-03 13:00 | Outpatient (AMB) | payer MEDICARE, SELFPAY ==
--- NOTE | 2025-04-03 13:08 | A.OFFPC_ITS ---
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 Takes one daily levothyroxine 112 mcg PO DAILY multivitamin 1 tab PO DAILY mupirocin 2% 1 appl topical BID omega-3 fatty acids takes one daily/unsure brand Tobacco use date assessed: 04/03/25 Fall risk assessment: No Falls in past year Last assessed Fall Risk: 04/03/25 Dental Screening Dental Screen Date: 04/03/25 Did you have a dental visit in the last 12 months?: Yes Did you have a dental problem in the last 6 months where you did not have access to dental care?: No Was dental information given to patient?: Patient has dentist HPI Physical HPI Details The patient is a 65-year-old female presenting for an annual physical examination with added focus on discomfort in her right knee and a cyst on her back. She describes the knee discomfort as a new onset in the last few months characterized by a twingy pain when moved improperly, though she experiences no ongoing pain. There is a history of physical therapy for other issues but none for the knee, and no imaging studies have been done for it yet. There is a non-painful cyst on her back she is concerned about, with mention of a black line on her nose, normally covered by makeup, raising concerns for skin issues given her extensive birthmarks. She has a significant history of breast cancer, managed by a lumpectomy in 2016 and treatment with letrozole. This was followed by the development of osteoporosis attributed to the letrozole therapy. Additional medical history includes hypothyroidism managed with levothyroxine, hyperlipidemia with past cholesterol levels at 219 mg/dL, and bilateral cataract surgery. Social History - Denies smoking and alcohol use. [facility] Medical History (Updated 04/03/25 @ 17:38 by Mikki Shah PA-C) Overweight with body mass index (BMI) of 29 to 29.9 in adult Osteoporosis Dermoid cyst of skin of back Skin lesion Right knee pain History of mammogram (~11/30/24) History of breast cancer Pure hypercholesterolemia, unspecified Establishing care with new doctor, encounter for Anxiety Lobular carcinoma of left breast, stage 1, estrogen receptor positive Cataract of both eyes Hypothyroidism Surgical History Hx of wisdom tooth extraction Hx of colonoscopy (~01/20/22) History of lumpectomy of left breast Hx of cataract surgery Family History Mother History of colon cancer Social History Household Members: None Housing: House Are you a primary healthcare economics consultant to a significant other at home: No Do you presently have visiting nurse or other home services: No Alcohol intake: current Alcohol intake frequency: holidays/special occasions only Patient Tobacco Use Status: Never used Tobacco service: No Current occupational status: employed Cognitive needs: No Hearing needs: No Vision needs: Yes (rx glasses) Questionnaire PHQ-9 Over the last 2 weeks, how often have you been bothered by any of the following problems? 1. Little interest or pleasure in doing things: not at all 2. Feeling down, depressed, or hopeless: not at all 3. Trouble falling or staying asleep, or sleeping too much: not at all 4. Feeling tired or having little energy: not at all 5. Poor appetite or overeating: not at all 6. Feeling bad about yourself - or that you are a failure or have let yourself or your family down: not at all 7. Trouble concentrating on things, such as reading the newspaper or watching television: not at all 8. Moving or speaking so slowly that other people could have noticed. Or the opposite - being so fidgety or restless that you have been moving around a lot more than usual: not at all 9. Thoughts that you would be better off or of hurting yourself in some way: not at all Total score: 0 Depression Screening Interpretation: Negative Depression Screening Done: Yes 63454 - PHQ-9 Billing: Yes Source: Developed by Drs. Colin Soto, April Webb, Darian Holland and colleagues, with an educational lexie from [employer]. Thrive Questionnaire Date Thrive assessed: 04/03/25 I am a: Patient What is your living situation today?: I have a steady place to live Within the past 12 months, did the food you bought not last and you didn't have the money to get more?: Never true Within the past 12 months, did you worry whether your food would run out before you got money to buy more?: Never true Do you have trouble paying for medicines?: No Do you have trouble getting transportation to medical appointments?: No Do you have trouble paying your heating and electricity bill?: No Do you have trouble taking care of your child, family member or friend?: No Do you have trouble with day-to-day activities such as bathing, preparing meals, shopping, managing finances, etc.?: No Are you currently unemployed and looking for a job?: No Are you interested in more education?: No Please select the resources that you would like help with: None THRIVE Score: 0 AUDIT C Alcohol Use Questionnaire (AUDIT-C) 1. How often do you have a drink containing alcohol?: Monthly or less 2. How many drinks containing alcohol do you have on a typical day when you are drinking?: 1 or 2 3. How often do you have six or more drinks on one occasion?: Never Total Score: 1 Score Reviewed/Action Taken: No MIGUEL-7 AMB Questionnaire MIGUEL-7 Date MGIUEL - 7 assessed: 04/03/25 Feeling nervous, anxious, or on edge: 0 = Not at all Not being able to stop or control worryin = Not at all Worrying too much about different things: 0 = Not at all Trouble relaxin = Not at all Being so restless that it is hard to sit still: 0 = Not at all Becoming easily annoyed or irritable: 0 = Not at all Feeling afraid as if something awful might happen: 0 = Not at all Total MIGUEL-7 score (0-4 normal; 5-9 mild; 10-14 moderate; 15-21 severe): 0 Source: Developed by Drs. Colin Soto, April Webb, Darian Holland and colleagues, with an educational lexie from [employer]. MIGUEL-7 Assessment Billing MIGUEL-7 Assessment Tool: MIGUEL-7 Assessment 95562 Review of Systems Const Details: - Musculoskeletal: Reports a history of twingy knee pain on awkward movement; Denies persistent knee pain. - Skin: Reports a black juan on the nose and a cyst on the back. - Hematologic: Denies any new or unusual bruising or bleeding. - General: Denies recent falls. - Neurological: Denies recent weakness or numbness. Physical exam (Primary Care) Vital Signs: Last Vital Signs Temp 97.2 F 04/03/25 13:11 Pulse 78 04/03/25 13:11 Resp 12 04/03/25 13:11 BP 112/55 L 04/03/25 13:11 Pulse Ox 98 04/03/25 13:11 Oxygen Delivery Method Room Air 04/03/25 13:11 Care Plan Goal for BP management: <140/90 at Goal BMI result Body Mass Index 29.8 BMI Assessment/Plan discussion: High BMI High, discussed plan: lifestyle, weight reduction, dietary, physical activity and alcohol moderation Tobacco/Smoking Status: Tobacco use Status Tobacco use date assessed 04/03/25 04/03/25 13:17 Patient Tobacco Use Status Never used Tobacco 04/03/25 13:17 PHQ-9: PHQ-9 Score PHQ-9: Total score 0 04/03/25 13:34 Depression Screening Interpretation: Negative Thrive Assessment: Date of Thrive Assessment Date Thrive assessed 04/03/25 04/03/25 13:17 Const Other: Appearance: Alert. Oriented X3. No acute distress. Head: Normal external exam. Normocephalic. Atraumatic. Eyes: Pupils are equal, round, and reactive to light. Extraocular movements intact. Conjunctiva and sclera normal. Eyelids normal. Ears: External auditory canal normal. Tympanic membranes normal. Throat: Pharynx normal. Uvula midline. Moist mucous membranes. Neck: Normal inspection. Neck supple. Full range of motion. No adenopathy. Thyroid Normal. No meningeal signs. No neck mass noted. Cardiovascular: Normal heart rate and rhythm. Heart sound normal. No murmurs noted. Pulses normal throughout. Respiratory: No respiratory distress. Painless inspiration. Breath sounds normal. No wheezes/rales/rhonchi noted. Chest nontender. No accessory muscle usage noted or decreased air movement noted. Abdomen: Soft and nontender. Bowel sounds normal in all 4 quadrants. No distention noted. No organomegaly noted. No visible injury noted. Back: No costovertebral angle tenderness. Full range of motion noted. Noted presence of a cyst on the back, which was drained during the visit. Skin: Skin warm and dry. Normal skin color. Normal skin turgor. No rashes/lesions/lacerations noted. Noted a black juan on the nose and a cyst on the back. Extremities: Patient reports a history of right knee issues with occasional twingy pain but no current pain. Otherwise all other extremities exhibit normal range of motion nontender. No lower extremity edema or calf tenderness noted bilaterally. Neuro: Oriented X 3. No motor deficit. No sensory deficit. Reflexes normal. Office Procedures Incision and Drainage Incision and drainage performed by: Mikki Shah Informed consent given: Yes (verbal consent ) Time out checklist: patient Location: mid back Anesthesia: none Incision with: other (Manual expression) Drainage quality: purulent Probed cavity: No Culture taken: No Lesion: fluctuance Hemostasis: pressure Cavity management: irrigated and drain Dressing: gauze Patient tolerated procedure: well Complications: No Results Reviewed Results Reviewed: - Labs: Chronic low white blood cell count; prior total cholesterol of 219 mg/dL; Vitamin D, thyroid, and other electrolytes normal as per last tested in August 2024. - Imaging: Recent normal mammogram on 11/30/2024, and a DEXA scan reflecting osteoporosis on 11/29/2023. Coding Level of Care Code New Pt Level 4 (81172) New Pt Prev Care >65yr (25844) Diagnoses Establishing care with new doctor, encounter for Z76.89 Right knee pain M25.561 Dermoid cyst of skin of back D23.5 Breast cancer C50.919 Hypothyroidism E03.9 Hyperlipidemia E78.5 Osteoporosis M81.0 Overweight with body mass index (BMI) of 29 to 29.9 in adult E66.3; Z68.29 Additional Codes MIGUEL-7 Assessment Billing - MIGUEL-7 Assessment Tool: MIGUEL-7 Assessment 82638 ([id number]) PHQ-9 - 75455 - PHQ-9 Billing: Yes ([id number]) Time Spent (min) 60 Assessment & Plan Assessment & Plan (1) Establishing care with new doctor, encounter for: Code(s): Z76.89 - Persons encountering health services in other specified circumstances Category: Medical (2) Right knee pain: Code(s): M25.561 - Pain in right knee Category: Medical Plan: X-ray imaging is planned to assess structural integrity and determine further intervention for the knee, including physical therapy or orthopedic care. Condition is chronic and stable will continue to monitor. (3) Dermoid cyst of skin of back: Code(s): D23.5 - Other benign neoplasm of skin of trunk Category: Medical Plan: A cyst was expressed and a topical antibiotic was prescribed. Referral to dermatology made for further evaluation and treatment of skin issues. (4) Breast cancer: Comment: Status post lumpectomy of [place] breast [place] [address] Huizar Code(s): C50.919 - Malignant neoplasm of unspecified site of unspecified female breast Category: Medical Plan: Continue with regular mammograms and oncology surveillance as per protocol. (5) Hypothyroidism: Code(s): E03.9 - Hypothyroidism, unspecified Category: Medical Plan: Continue levothyroxine therapy, and order routine thyroid function tests. Condition is chronic and stable continue to monitor. (6) Hyperlipidemia: Code(s): E78.5 - Hyperlipidemia, unspecified Category: Medical Plan: Reassess lipid levels and discuss diet/exercise for management. Condition is chronic and stable continue to monitor. (7) Osteoporosis: Code(s): M81.0 - Age-related osteoporosis without current pathological fracture Category: Medical Plan: Educate on fall prevention and review current management plan post-laboratory results. Condition is chronic and stable continue to monitor. (8) Overweight with body mass index (BMI) of 29 to 29.9 in adult: Code(s): E66.3 - Overweight; Z68.29 - Body mass index [BMI] 29.0-29.9, adult Category: Medical Plan: Patient to improve diet and exercise regimen. Condition is chronic and stable continue to monitor. Plan Plan Patient was informed and verbally consented to the use of an ambient scribe for clinic note documentation during this visit. 1. Osteoarthritis Of Right Knee X-ray imaging is planned to assess structural integrity and determine further intervention for the knee, including physical therapy or orthopedic care. 2. Dermal Cyst A cyst was expressed and a topical antibiotic was prescribed. Referral to dermatology made for further evaluation and treatment of skin issues. 3. History Of Breast Cancer Continue with regular mammograms and oncology surveillance as per protocol. 4. Hypothyroidism Continue levothyroxine therapy, and order routine thyroid function tests. 5. Hyperlipidemia Reassess lipid levels and discuss diet/exercise for management. 6. Osteoporosis Educate on fall prevention and review current management plan post-laboratory results. 7. Cataracts Status Post Surgery Routine follow-up recommended with ophthalmology. I discussed a detailed evaluation plan for the patient's current knee discomfort, including obtaining an X-ray to assess for any structural anomalies. We considered physical therapy and potential orthopedic consultation based on forthcoming results. I educated the patient about the osteotomy-induced osteoporosis and provided guidance on prevention and monitoring strategies. We undertook a thorough examination of a dermal cyst, performed drainage, and opted for a referral to dermatology for further assessment. The patient was advised to continue mammogram surveillance as she has a history of breast cancer, maintaining current thyroid management, and evaluating hyperlipidemia through lifestyle interventions. We reinforced understanding of blood work, including A1c levels and interposed comprehensive surveillance strategies into her routine. Orders: Orders XR knee RT 4V Today M25.561 - Pain in right knee C Reactive Protein Today Z00.00 - Encounter for general adult medical examination without abnormal findings Complete Blood Count Auto Diff Today Z00.00 - Encounter for general adult medical examination without abnormal findings Liver Panel Today Z00.00 - Encounter for general adult medical examination without abnormal findings Magnesium Today Z00.00 - Encounter for general adult medical examination without abnormal findings Vitamin B12 and Folate Today Z00.00 - Encounter for general adult medical examination without abnormal findings Comprehensive [place]. Panel Fast Today Z00.00 - Encounter for general adult medical examination without abnormal findings Hemoglobin A1c Today Z00.00 - Encounter for general adult medical examination without abnormal findings Lipid Panel Today Z00.00 - Encounter for general adult medical examination without abnormal findings Vitamin D 25-OH Total Today Z00.00 - Encounter for general adult medical examination without abnormal findings TSH reflex Free T4 Today Z00.00 - Encounter for general adult medical examination without abnormal findings Referrals Dermatology Referral L98.9 - Disorder of the skin and subcutaneous tissue, unspecified Medications: New mupirocin 2% 1 appl topical BID 22 grams 0RF mupirocin 2% 1 appl topical BID 22 grams 0RF Patient Instructions: - Schedule an X-ray of the right knee. - Apply the provided Bactropan ointment to the cyst area twice daily. - Follow up with a toggler as discussed. - Undergo fasting blood tests as planned. - Continue current medications and refilling prescriptions as needed. - Seek shingles and pneumonia vaccinations at the pharmacy. - Be cautious of fall risks and maintain bone health strategies. - Contact the office with any signs of infection or if other symptoms arise. - Schedule follow-up appointments annually or as needed for new concerns.
[2025-04-03 13:11] VITALS: BP 112/55; PULSE 78; RESP 12; TEMP 36.2; O2SAT 98; BMI 29.8
--- OUTSIDE RECORDS SUMMARY | 2025-04-03 14:33 | XMS_ITS | Data Portability ---
Author Organization [place] - [facility], Allergy Address [address] [address] Care Team Providers Care Body Builder Name Role Phone NGUYỄN CINTRON Primary Care Provider Assessment Encounter Date Assessment Date Assessment LastModified by Organization Details LastModified Time 03/21/2024 03/21/2024 63-year-old female presents for cerumen removal. Cerumen impaction removed bilaterally. She will follow-up in 6 months for cerumen removal and repeat audiometric testing. josiah Not available 03/21/2024 14:25:35 09/17/2024 09/17/2024 64-year-old female presents for cerumen removal and updated audiometric testing. Cerumen impaction removed bilaterally. Audiometric testing demonstrated essentially stable asymmetric hearing loss. We will continue to observe. She will follow-up in 6 months for cerumen removal and yearly for audiometric testing. josiah Not available 09/17/2024 13:45:16 03/28/2025 03/28/2025 65-year-old female presents for cerumen removal. Cerumen impaction removed bilaterally. Bilateral TMs are intact. She will follow-up in 6 months for cerumen removal and updated audiometric testing. josiah Not available 03/28/2025 11:30:08 Plan of Treatment Reminders Order Date Submit Date Provider Last Modified By Organization Details Last Modified Time Details Appointments Establish ed 15 2024 01:00P M JESSICA PAEZ PA-C Not available Not available Not available Hearing Test 2024 01:30P M Hearing Test Not available Not available Not available Lab None recorded. Referral None recorded. Procedures None recorded. Surgeries None recorded. Imaging None recorded. Medication Orders None recorded. Patient TargetsNo targets recorded. Patient InstructionsNo instructions recorded. Reason for Referral None Reported. Results Created Date Observation Date Name Description Value Unit Range Abnormal Flag Note LastModifiedBy Organization Detail LastModifiedTime 06/13/20 24 07/22/2023 imagi ng/di agnos tic resul t No observ ation record ed. [email or web address] Not Available 02:13:35 09/17/20 24 09/17/2024 audio gram No observ ation record ed. [email or web address] Not Available 08/25 13:45:45 Result Notes None recorded. Problems Name Problem SNOMED Code Status Onset Date Resolution Date Notes Provider Name and Address Organization Details Recorded Time Bilateral tinnitus 26602282186 02 Active 2022 Tinnitus, bilateral ; Note: Date Diagnosed : 07/22/2023 11:54 AM (H93.13) Not Available [facility] 4 03:15:40 Sensorine ural hearing loss 19208270 Active 2022 Sensorine ural hearing loss, unilatera l, right ear, with unrestric eddie hearing on the contralat eral side; Note: Date Diagnosed : 07/22/2023 11:54 AM (H90.41) Not Available [facility] 4 03:15:40 Impacted cerumen in right ear 50942471449 41040 Active 2022 Impacted cerumen, right ear; Note: Date Diagnosed : 07/22/2023 1:14 PM (H61.21) Not Available [facility] 4 03:15:39 Sensorine ural hearing loss of bilateral ears 475710845 Active 2022 Sensorine ural hearing loss, bilateral ; Note: Date Diagnosed : 07/22/2023 1:12 PM (H90.3) Not Available [facility] 4 03:15:39 Cyst of nasal sinus 58364777 Active 2018 Cyst and mucocele of nose and nasal sinus; Note: Date Diagnosed : 02/08/2019 11:16 AM (J34.1) Not Available [facility] 4 03:15:40 Impacted cerumen of bilateral ears 48339406862 67212 Active 2023 JESSICA PAEZ PA-C [facility], [address] , [place] - [facility] 4 14:25:23 Problem Notes None recorded. Procedures Surgical History Date Name Laterality Status Provider Name and Address Organization Details Recorded Time 5 Cerumen removal without microscope bilat completed JESSICA PAEZ PA-C [facility], [address], [place] - [facility] 03/28/2025 11:06:08 4 Cerumen removal without microscope bilat completed JESSICA PAEZ PA-C 100 [facility],[address], [address], [place] - [facility] 09/17/2024 13:13:30 4 Air & Speech Audio with Tymps - 04594, 16965 & 94775 completed JAMAICA CHAVEZ 100 [facility],[address], [address], [place] - [facility] 09/17/2024 13:20:52 4 Cerumen removal without microscope bilat completed JESSICA PAEZ PA-C 100 [facility],[address], [address], [place] [facility] 03/21/2024 14:24:56 Imaging Results None recorded. Procedure Notes None recorded. Medical Equipment None Reported. Allergies Allergen ID Allergen Name Allergen Category Reaction Reaction Severity Criticality Documentation Date Start Date Code Code System Note Provider Name and Address Organization Details Recorded Time 322861 Product containin g penicilli n (product) medicatio n diarrhea Not available Not available 03/06/2024 05910 8001 SNOMED React ion: Diarr hea; Not Available [facility] 4 01:26:35 605959 adhesive tape environme nt,medica tion Not available Not available Not available 03/21/2024 87602 UNK Stella robertson [place] - [facility] 4 13:41:43 Medications Name Sig Start Date Stop Date Status Note LastModified by Organization Details LastModified Time atorvasta tin 10 mg tablet 2018 active Medicati on ID: [id number] D uration Value: 30 Brand Name: atorvast atin Sen d Method: E-Prescr ibed Sub s Allowed: subs OK Medic ationGen ericName : atorvast atin Not Available Not Available Not Available mupirocin 2 % topical ointment 1 a small amount to affected area 2018 active Medicati on ID: [id number] P rescribe d By Name: Chuy Macias MD Brand Name: mupiroci n Send Method: E-Prescr ibed Sub s Allowed: subs OK Medic ationGen ericName : mupiroci n Not Available Not Available Not Available furosemid e 20 mg tablet active Medicati on ID: 112707 D uration Value: 30 Brand Name: furosemi de Send Method: E-Prescr ibed Sub s Allowed: subs OK Medic ationGen ericName : furosemi de Not Available Not Available Not Available Synthroid 112 mcg tablet TAKE 1 TABLET DAILY active Not Available Not Available No t Available letrozole 2.5 mg tablet 2018 active Medicati on ID: [id number] D uration Value: 30 Brand Name: letrozol e Send Method: E-Prescr ibed Sub s Allowed: subs OK Medic ationGen ericName : letrozol e Not Available Not Available Not Available amoxicill in 875 mg-potass ium clavulana te 125 mg tablet 05/01 completed Medicati on ID: [id number] P rescribe d By Name: Chuy Macias MD Brand Name: amoxicil karina-pot clavulan ate Send Method: E-Prescr ibed Sub s Allowed: subs OK Speci al Instruct ion: Take 1 tablet by mouth every 12 hours Me dication GenericN lilibeth: amoxicil karina-pot clavulan ate Not Available Not Available Not Available Bill Mag Zinc Plus D3 333 mg-133 unit-133 mg-5 mg tablet active Medicati on ID: [id number] B rand Name: calcium carb-D3- mag ox-zinc ox Send Method: E-Prescr ibed Sub s Allowed: subs OK Medic ationGen ericName : calcium carb-D3- mag ox-zinc ox Not Available Not Available Not Available [place] 3-6-9 1,200 mg capsule active Medicati on ID: [id number] B rand Name: [place] 3-6-9 Se nd Method: E-Prescr ibed Sub s Allowed: subs OK Medic ationGen ericName : [place] 3-6-9 Not Available Not Available Not Available Vitals Date Recorded Body height Body mass index (BMI) Body weight Provider Name and Address Organization Details Last Updated DateTime 03/21/2024 157.48 cm 30.7 kg/m2 84559.52 g Stella Marsh [facility] 03/21/2024 13:41:20 Date Recorded Body height Body mass index (BMI) Body weight Provider Name and Address Organization Details Last Updated DateTime 03/28/2025 157.48 cm 29.4 kg/m2 18523.37 g Landy Linares [facility] 03/28/2025 11:13:50 Social History None recorded. Functional Status None recorded. Mental Status None recorded. Family History Nothing Reported. Medical History No medical history recorded. Gynecological HistoryNo gynecological history recorded. Obstetrics History GPAL:G 0 P 0 0 0 0 Past Encounters Encounter ID Performer Location Encounter Start Date Encounter Closed Date Diagnosis/Indication Diagnosis SNOMED-CT Code Diagnosis ICD10 Code Diagnosis Note [id number] JESSICA PAEZ PA-C [facility] [address] [address] 03/21/2024 13:22:07 03/21/2024 13:58:15 Impacted cerumen of bilateral ears 8329943766 120307 H61.23 [id number] JESSICA PAEZ PA-C [facility] [address] [address] 09/17/2024 12:53:58 09/17/2024 13:46:36 Impacted cerumen of bilateral ears 5249385620 405107 H61.23 Bilateral tinnitus 12440 55563 102 H93.13 Right Ear:Border line normal hearing through 3K Hz sloping to a mild SNHL with excellent speech discrimina tion.Type A tympanogra m.Left Ear:Normal hearing with excellent speech discrimina tion.Type A tympanogra m. Sensorineu ral hearing loss 13507077 H90.41 [id number] JESSICA PAEZ PA-C [facility] [address] [place] [address] 03/28/2025 11:04:14 03/28/2025 11:23:02 Impacted cerumen of bilateral ears 4423801067 390712 H61.23 Health Concerns Section Related Observation LastModified by Organization Detai ls LastModified Time None Recorded Concern Status LastModified by Organization Details LastModified Time None Recorded Advance Directives Directive None Recorded Payers Insurance Date Sequence Insurance Name Policy Number Policy Crespo Covered Member ID Crespo Member ID Guarantor Name 03/25/2025 1 [facility] BLUE (MEDICARE REPLACEMENT PPO) [id number] Jordana Hester [id number] Jordana Hester 09/17/2024 1 [employer] (MEDICAID HMO) [id number] Jordana Hester [id number] Jordana Hester Notes Date Note Type Note Provider Name and Address Organization Details Recorded Time 03/21/2024 text/html 63 year old kathy morales presents for cerumen removal. No concerns today. History of asymmetric SNHL that is being observed. Due for repeat audiometric testing in June. ANNETTE BOTELLO MD [address] [place] [address], [phone], [place] - [facility] 03/21/2024 15:11:34 09/17/2024 text/html 64 year old kathy morales presents for cerumen removal and updated audiometric testing. No concerns today. History of asymmetric SNHL that is being observed. ANNETTE BOTELLO MD [address] [place] [address], [phone], [facility] - [facility] 09/17/2024 21:04:50 03/28/2025 text/html 65 year old kathy morales presents for cerumen removal. No concerns today. History of asymmetric SNHL that is being observed. ANNETTE BOTELLO MD [address] [place] [address], [phone], [place] [facility] 03/28/2025 17:15:27 OBGyn Episode No OBEpisode recorded.
== END 2025-04-03 13:54 | disposition home or self-care (01) ==
LOC: HO.HMCSH 13:00
PROVIDERS: PCP Internal Medicine; Visit Provider Physician Assistant Medical
DX: Z00.00 Encounter for general adult medical examination without abnormal findings (principal); M25.561 Pain in right knee; C50.919 Malignant neoplasm of unspecified site of unspecified female breast; E66.3 Overweight; Z68.29 Body mass index [BMI] 29.0-29.9, adult; Z76.89 Persons encountering health services in other specified circumstances; D23.5 Other benign neoplasm of skin of trunk; E03.9 Hypothyroidism, unspecified; E78.5 Hyperlipidemia, unspecified; M81.0 Age-related osteoporosis without current pathological fracture

== ENCOUNTER → 2025-04-03 13:00 | Outpatient (BNVA) | payer MEDICARE, SELFPAY | PROVIDERS: PCP Internal Medicine; Visit Provider Physician Assistant Medical | DX: Z00.00 Encounter for general adult medical examination without abnormal findings (principal); M25.561 Pain in right knee; E03.9 Hypothyroidism, unspecified; E78.5 Hyperlipidemia, unspecified; D23.5 Other benign neoplasm of skin of trunk; M81.0 Age-related osteoporosis without current pathological fracture; E66.3 Overweight; Z68.29 Body mass index [BMI] 29.0-29.9, adult; Z85.3 Personal history of malignant neoplasm of breast; Z76.89 Persons encountering health services in other specified circumstances | CPT/HCPCS: 10060; 96127; 99202; 99387 ==

== ENCOUNTER 2025-04-30 13:34 | Outpatient (REF) | payer MEDICARE, SELFPAY ==
--- NOTE | ~2025-04-30 | XR_ITS ---
CLINICAL HISTORY: M25.561 - Pain in right knee 6 Views of the right knee, including oblique views, notch views, AP, lateral and patellar views: Comparison: None. Findings: Femorotibial joint spaces are preserved without significant narrowing. There is moderate narrowing of the patellofemoral distance with small lateral patellar bone spurs. No joint effusion. No soft tissue calcifications. Impression: Unremarkable non weight-bearing right knee. This document has been electronically signed by: Armando Almaraz MD on 05/01/2025 14:26:48
== END 2025-04-30 13:35 | disposition home or self-care (01) ==
LOC: HO.XRAY 13:34
PROVIDERS: Visit Provider Physician Assistant Medical
DX: M25.561 Pain in right knee (principal)
CPT/HCPCS: 73564

== ENCOUNTER → 2025-04-30 13:40 | Outpatient (BNV) | payer MEDICARE, SELFPAY | PROVIDERS: Visit Provider Radiology Diagnostic Radiology | DX: M25.561 Pain in right knee (principal) | CPT/HCPCS: 73564 ==

== ENCOUNTER 2025-06-20 07:24 | Outpatient (REF) | payer MEDICARE, SELFPAY ==
--- OUTSIDE RECORDS SUMMARY | 2025-06-20 07:28 | XMS_ITS | Clinical Summary ---
Author Organization [facility] Address [address] [place] [phone] Phone Care Team Providers Care Labor Expediter Name Role Phone Colin Zepeda DO Primary Care Provider Allergies Active Allergy Reactions Criticality Noted Date Comments Adhesive Rash Low 04/10/2018 Penicillins Diarrhea 04/10/2018 Medications levothyroxine (SYNTHROID, LEVOTHROID) 112 MCG tablet Take 112 mcg by mouth every morning. Active therapeutic multivitamin tablet Take 1 tablet by mouth daily. Active calcium carbonate 1,250 mg (500 mg elemental) capsule Take 1,250 mg by mouth 2 (two) times a day with meals. Active magnesium oxide 250 mg (150 mg elemental) Tab Take 250 mg by mouth daily. Active omega 2-eft-rdn-fish oil 1,000 mg (120 mg-180 mg) Cap Take 1 capsule by mouth daily. Active Active Problems Problem Noted Date Diagnosed Date Pain in left foot 08/30/2023 Pain in right foot 08/30/2023 Corns 08/30/2023 Lobular carcinoma of left breast 04/10/2018 Assessment & Plan (12/27/2022 10:42 AM EST): Nicole continues to follow with [facility] and reports she recently had visit and normal imaging. Encounters Date Type Department Care Team Description 05/02/2025 10:20 AM EDT Office Visit [facility] [address] [place] [address] Naya Rodriguez MD Encounter for gynecological examination without abnormal finding (Primary Dx); Cervical cancer screening from Last 3 Months Family History Medical History Relation Comments Heart attack Father Colon cancer Mother Relation Status Comments Father Mother Social History Tobacco Use Types Packs/Day Years Used Date Smoking Tobacco: Never Smokeless Tobacco: Never Tobacco Cessation:Counseling Given: Not Answered Alcohol Use Standard Drinks/Week Comments Not Currently 0 (1 standard drink = 0.6 oz pur e alcohol) rare Education Answer Date Recorded Are you interested in more education? Not on jaqueline e 02/18/2023 Are you concerned about learning? Not on file 02/18/2023 No 02/18/2023 No 02/18/2023 Digital Access Answer Date Recorded No 03/19/2023 No 03/19/2023 Reliable internet access at home? Not on file 03/19/2023 Device with a working camera? Not on file Comments No Sex and Gender Information Value Date Recorded Sex Assigned at Not on file Legal Sex Female 9:50 PM EDT Gender Identity Not on file Sexual Orientation Not on file Last Filed Vital Signs Vital Sign Reading Time Taken Comments Blood Pressure 110/60 05/02/2025 10:21 AM EDT Pulse 88 08/30/2023 9:16 AM EST Temperature 36.6 C (97.9 F) 12/08/2018 2:18 PM EST Respiratory Rate - - Oxygen Saturation 96% 12/08/2018 2:18 PM EST Inhaled Oxygen Concentration - - Weight 73.5 kg (162 lb) 05/02/2025 10:21 AM EDT Height 160 cm (5' 3 ) 04/28/2022 10:21 AM EDT Body Mass Index 28.7 04/28/2022 10:21 AM EDT Plan of Treatment Health Maintenance Due Date Last Done Comments Adult Td,Tdap Booster 1960 LIPID PANEL 1960 TSH LEVEL 1959 DEPRESSION SCREENING 1971 HEPATITIS C SCREENING 1977 PNEUMOCOCCAL VACCINES (50+ years) (1 of 2 - PCV) 1978 ZOSTER VACCINES (1 of 2) 1978 SCREENING FOR DIABETES 1994 MAMMOGRAM 1999 COLOGUARD 2004 COLONOSCOPY 2004 COLORECTAL CANCER SCREENING 2004 FIT TEST 2004 FOBT 2004 SIGMOIDOSCOPY 2004 VIRTUAL COLONOSCOPY 2004 OSTEOPOROSIS SCREENING INITI AL (ONE-TIME) 2024 COVID-19 VACCINE (4 - 2023-2 5 season) 2024 10/29/2021, 02/18/2021, 01/28/2021 RSV VACCINE (1 - 1-dose 75+ series) 2034 SMOKING STATUS SCREENING (On ce After 26 Yrs) Completed 05/02/2025 HEPATITIS A VACCINES Aged Out No long er eligible based on patient's age to complete this topic HIB VACCINES Aged Out No longer eligi ble based on patient's age to complete this topic MENINGOCOCCAL VACCINES (ACWY) Aged Out No longer eligible based on patient's age to complete this topic MENINGOCOCCAL VACCINES (B) Aged Out N o longer eligible based on patient's age to complete this topic Medical Devices Not on file Procedures Procedure Name Priority Date/Time Associated Diagnosis Comments PAP TEST Routine 05/02/2025 12:00 AM EDT from Last 3 Months Results * Pap Test (05/02/2025 12:00 AM EDT) 05/02/2025 05/03/2025 8:4 8 AM EDT Narrative SEE NARRATIVE - 05/10/2025 9:51 AM EDT [address] [address] Felt Hat Mellowing Machine Operator: Bobby Welsh MD NEONATAL CRITICAL CARE NURSE Cytology Report FINAL DIAGNOSIS A. PAP SMEAR (THIN PREP) CE: SPECIMEN ADEQUACY: Satisfactory for evaluation; transformation zone present. INTERPRETATION: NEGATIVE FOR INTRAEPITHELIAL LESION OR MALIGNANCY. Atrophy. This specimen was analyzed by the automated ThinPrep Imaging System ([employer].) and the selected veras were reviewed by a waiter/waitress captain. Electronically Signed Out By: EDILIA Philip(ASCP) The Pap test is a screening test primarily for squamous cancers and precursors and has associated false-negative and false-positive results. New technologies such as liquid-based preparations may decrease but will not eliminate all false-negative results. Regular sampling and follow-up of unexplained clinical signs and symptoms are recommended to minimize false negative results. PROCEDURES/ADDENDA HPV Testing (Requested) Ordered Date: 05/03/2025 A. PAP SMEAR (THIN PREP) CE: High-risk HPV Panel w/ extended genotyping NEG HPV 16-NEG HPV 18-NEG HPV 45-NEG HPV 33/58-NEG HPV 31-NEG HPV 56/59/66-NEG HPV 51-NEG HPV 52-NEG HPV 35/39/68-NEG Performed by real-time polymerase chain reaction (PCR) at [facility], [address] [place] [address] using the FDA-approved ITM Power Onclarity HPV Assay with extended genotyping. Uses of the assay in scenarios other than those approved by the FDA should be considered off-label use. The accuracy and precision of this test for all other off-label specimen sources has been verified in the Cytopathology Laboratory of the [facility] and has not been cleared or approved by the U.S. Food and Drug Administration. Clinical correlation is advised. The assay assesses the E6/E7 DNA target and utilizes human beta globin as an internal control. Cytology and HPV testing are screening assays and should not be used as the sole means of detecting cancer. False-positives and false-negatives can occur. CLINICAL HISTORY Date of Last Menstrual Period: Not Provided Menstrual History: Post Menopausal Other Clinical Conditions: Screening Pap SPECIMEN SOURCE A: PAP SMEAR (THIN PREP) CE Patient Name: JORDANA HESTER : 1960 (Age: 65) Sex: F Institution: [facility] Location: [facility] Date of Collection: 05/02/2025 Date of Reported: 05/10/2025 09:51 Results to: Naya Rodriguez MD us Naya Rodriguez MD CYTOLOGY ORDERABLES Final Result SEE NARRATIVE from Last 3 Months Insurance BLUE [place] MED[place] P[place]UE REPLACEMENT Member Subscriber Plan / Payer (Ef fective 2024-Present) Name:Jordana Hester Relation to Subscriber:Self Name:Jordana Hester Payer ID:[id number] (NAIC) Type:Medicare Address: [facility] [id number] [place], [place] [address] MEDICARE PPO BLUE REPLACEMENT [facility] MEDICARE PPO BLUE REPLACEMENT [facility] MEDICARE PPO BLUE REPLACEMENT [facility] MEDICARE PPO BLUE REPLACEMENT [facility] MEDICARE PPO BLUE REPLACEMENT Care Teams Labor Expediter Relationship Specialty Start Date End Date Colin Zepeda DO [address] [place] [id number] PCP - General 08/09/17 Additional Source Comments The information contained in this document represents components of the legal health record. It is not the complete legal health record.[facility]
[2025-06-20 07:33] LABS: MANUAL DIFF FLAG NO
[2025-06-20 08:00] LABS: Hematocrit 40.4 % (37.0-47.0); Hemoglobin 13.5 g/dl (12.0-16.0); Imm Gran Abs Auto 0.01 X10*3/uL (0.00-0.03); Imm Gran Pct Auto 0.2 % (0.0-0.4); Lymphocytes Absolute Auto 1.8 X10*3/uL (1.2-4.9); Mean Corpuscular HGB Conc 33.4 g/dl (31.0-35.0); Mean Corpuscular Hemoglobin 29.9 pg (27.0-33.0); Mean Corpuscular Volume 89.6 fL (80.0-98.0); NRBC Abs Auto 0.000 X10*3/uL (0.0-0.012); NRBC Pct Auto 0.0 /100WBC (0.0-0.2); Platelet Count 249 X10*3/uL (160-400); Red Blood Count 4.51 X10*6/uL (4.20-5.50); White Blood Count 4.9 X10*3/uL (4.8-10.8)
[2025-06-20 08:32] LABS: Hemoglobin A1C 130.9770 umol/L; Total Hemoglobin (HGBA1C) 3584.2924 umol/L
[2025-06-20 08:43] LABS: Alanine Aminotransferase 27 U/L (0-31); Albumin Level 4.2 g/dL (3.5-5.0); Alkaline Phosphatase 89 U/L (39-117); Anion Gap 11 (12-20); Aspartate Amino Transferase 26 U/L (5-31); Blood Urea Nitrogen 15 mg/dL (9-16); Calcium 9.3 mg/dL (8.4-10.2); Carbon Dioxide 31 mmol/L (22-29); Chloride 103 mmol/L (96-108); Cholesterol 235 mg/dL (<200); Estimated Glomerular Filt Rate > 60; HDL Cholesterol 54 mg/dL (>40); Magnesium 2.0 mg/dL (1.6-2.6); Potassium 3.8 mmol/L (3.3-5.1); Sodium 141 mmol/L (135-145); Total Protein 7.2 g/dL (6.5-8.0); Triglycerides 123 mg/dL (<150)
[2025-06-20 09:06] LABS: Folate 14.0 ng/mL (> or = 4.0); Vitamin B12 741 pg/mL (200-900)
== END 2025-06-20 07:25 | disposition home or self-care (01) ==
LOC: HO.LAB 07:24
PROVIDERS: PCP Physician Assistant Medical; Visit Provider Physician Assistant Medical
DX: Z00.00 Encounter for general adult medical examination without abnormal findings (principal); Z13.6 Encounter for screening for cardiovascular disorders; Z13.21 Encounter for screening for nutritional disorder; Z13.29 Encounter for screening for other suspected endocrine disorder
CPT/HCPCS: 36415; 80053; 80061; 80076; 82248; 82306; 82607; 82746; 83036; 83735; 84443; 85025; 86140